=== PATIENT | male | born 2000 | race Caucasian/White ===

== ENCOUNTER 2023-08-23 12:08 | Outpatient (CLI) | payer BC | END 2023-08-23 12:09 | disposition home or self-care (01) | LOC: BICRAD 12:08 | PROVIDERS: ATTEND Family Medicine | DX: M54.2 Cervicalgia (principal); M54.12 Radiculopathy, cervical region | CPT/HCPCS: 72052 ==

== ENCOUNTER 2024-11-08 08:57 | Outpatient (CLI) | payer BC | END 2024-11-08 08:58 | disposition home or self-care (01) | LOC: ULT 08:57 | DX: R10.32 Left lower quadrant pain (principal) | CPT/HCPCS: 76705 ==

== ENCOUNTER 2025-07-16 13:31 | Outpatient (CLI) | payer BC, OTHER | END 2025-07-16 13:32 | disposition home or self-care (01) | LOC: BICMRI 13:31 | DX: M54.31 Sciatica, right side (principal); M54.16 Radiculopathy, lumbar region; M51.27 Other intervertebral disc displacement, lumbosacral region; M48.061 Spinal stenosis, lumbar region without neurogenic claudication; M48.07 Spinal stenosis, lumbosacral region | CPT/HCPCS: 72148 ==